=== PATIENT | male | born 1940 | race Caucasian/White ===

== ENCOUNTER 2018-05-23 11:21 | Day surgery (SDC) | payer BC, OTHER ==
[2018-05-22 14:41] VITALS: BMI 30.5
[2018-05-23 12:56] VITALS: TEMP 97.8
[2018-05-23 13:37] VITALS: BP 139/76; PULSE 65
--- NOTE | 2018-05-26 17:58 | PATH ---
Surgical Pathology Report Patient Name: ADRIA VALLADARES [facility]. Rec. #: [id number] /Age/Gender: 1940 (Age: 77) / M Account: [id number] Location: U-ENDOSCOPY Taken: 05/23/2018 Received: 05/23/2018 Reported: 05/26/2018 Physicians: Rico Azul M.D. Specimen(s) Received A: BX 2ND PORTION DUODENUM AND BULB B: BX ANTRUM C: BX HEPATIC FLEXURE LIPOMA D: BX CECAL POLYP E: ANASTOMOSIS RING SIGMOID COLON Clinical History Occult bleed, screening, history of colon diverticular stricture resection Postoperative diagnosis: Gastritis, colon polyp Final Diagnosis A. DUODENUM, SECOND PORTION AND BULB, BIOPSY: DUODENAL MUCOSA WITHOUT SIGNIFICANT PATHOLOGIC FINDINGS. B. STOMACH, ANTRUM, BIOPSY: GASTRIC ANTRAL MUCOSA WITH MILD CHRONIC GASTRITIS. IMMUNOHISTOCHEMICAL STAIN FOR H. PYLORI IS NEGATIVE. C. COLON, HEPATIC FLEXURE, LIPOMA, BIOPSY: SCANT MATURE ADIPOSE TISSUE WITHIN COLONIC SUBMUCOSA CONSISTENT WITH SUBMUCOSAL LIPOMA. D. CECUM, POLYP, BIOPSY: COLONIC MUCOSA WITH MILD CHRONIC ACTIVE COLITIS. NO GRANULOMA OR DYSPLASIA IDENTIFIED. SEE COMMENT. E. SIGMOID COLON, ANASTOMOSIS, BIOPSY: COLONIC MUCOSA WITH MODERATE TO SEVERE CHRONIC ACTIVE COLITIS. NO GRANULOMA OR DYSPLASIA IDENTIFIED. SEE COMMENT. Comment: Findings are non-specific. Differential diagnosis is broad, includes diverticular disease, diversion of associated colitis, and inflammatory bowel disease. Suggest clinical endoscopic correlation. History of prior colectomy is noted. Electronically Signed Addie Kay M.D. Gross Description A. Received in formalin, labeled "biopsy second portion of duodenum and bulb" are 3 costello, irregular portions of soft tissue ranging from 0.4-0.5 cm. in greatest dimension. The specimens are submitted in toto in one cassette. B. Received in formalin, labeled "biopsy antrum" are 3 costello, irregular portions of soft tissue ranging from 0.2-1.0 cm. in greatest dimension. The specimens are submitted in toto in one cassette. C. Received in formalin, labeled "biopsy lipoma hepatic flexure" are 3 costello, irregular portions of soft tissue ranging from 0.2-0.4 cm. in greatest dimension. The specimens are submitted in toto in one cassette. D. Received in formalin, labeled "biopsy polyp cecum" are 2 costello, irregular portions of soft tissue measuring 0.1 and 0.3 cm. in greatest dimension. The specimens are submitted in toto in one cassette. E. Received in formalin, labeled "biopsy sigmoid anastomosis" are 2 costello, irregular portions of soft tissue measuring 0.1 and 0.3 cm. in greatest dimension. The specimens are submitted in toto in one cassette. 05/23/2018
== END 2018-05-23 13:37 | disposition home or self-care (01) ==
LOC: JASU-ENDO 11:21
PROVIDERS: ATTEND Internal Medicine Gastroenterology
PROC: 0DBE8ZX Excision of Large Intestine, Via Natural or Artificial Opening Endoscopic, Diagnostic (ICD-10-PCS; 2018-05-23)
PROC: 0DBL8ZX Excision of Transverse Colon, Via Natural or Artificial Opening Endoscopic, Diagnostic (ICD-10-PCS; 2018-05-23)
PROC: 0DB68ZX Excision of Stomach, Via Natural or Artificial Opening Endoscopic, Diagnostic (ICD-10-PCS; 2018-05-23)
PROC: 0DBN8ZX Excision of Sigmoid Colon, Via Natural or Artificial Opening Endoscopic, Diagnostic (ICD-10-PCS; principal; 2018-05-23 12:15)
DX: Z12.11 Encounter for screening for malignant neoplasm of colon (principal); Z86.010 Personal history of colon polyps; K63.5 Polyp of colon; D17.5 Benign lipomatous neoplasm of intra-abdominal organs; K57.30 Diverticulosis of large intestine without perforation or abscess without bleeding; Z98.0 Intestinal bypass and anastomosis status; K25.9 Gastric ulcer, unspecified as acute or chronic, without hemorrhage or perforation
CPT/HCPCS: 88305-TC; 88342-TC